=== PATIENT | female | born 1985 | race Caucasian/White ===

== ENCOUNTER 2020-05-29 12:45 | Emergency (ER) | payer BC ==
[2020-05-29 14:10] LABS: BLOOD UREA NITROGEN,BUN 12 mg/dL (7.0-18.0); CARBON DIOXIDE,CO2 25.1 mmol/L (21.0-32.0); CHLORIDE,CL 102 mmol/L (98-107); GLUCOSE RANDOM 111 mg/dL (74-106); POTASSIUM,K 3.6 mmol/L (3.5-5.1); SODIUM,NA 136 mmol/L (136-145)
--- NOTE | 2020-05-29 14:20 | EDM.PDOC ---
ED [facility] GENERAL MEDICAL PROBLEM - General Chief Complaint: Neurological Problem Stated Complaint: RIGHT ARM GOING NUMB Time Seen by Provider: 05/29/20 14:05 - History of Present Illness INITIAL COMMENTS - FREE TEXT/NARRATIVE: HISTORY AND PHYSICAL: History of present illness: This 35-year-old female is 2 para 2 with her initial being twins, this is also a multi parous . The patient reports that she is approximately 16 weeks and has been waking up with bilateral upper extremity mostly on the right paresthesias that go from the shoulder to the hands. Mostly into her index and middle finger. She has no wrist pain. She denies any headache or lower extremity swelling. She has a sensation of fullness in her right upper extremity without evidence of right upper extremity swelling. Review of systems: A 10-point review of systems, other than pertinent positives and negatives as stated per HPI, is otherwise negative. Past medical history: As per history of present illness and as reviewed below otherwise noncontributory. Surgical history: As per history of present illness and as reviewed below otherwise noncontributory. Social history: No reported history of drug or alcohol abuse. Family history: As per history of present illness and as reviewed below otherwise noncontributory. Physical exam: VITAL SIGNS: Reviewed. GENERAL: Anxious about her condition but nontoxic and well-appearing otherwise HEAD: No signs of head trauma. EYES: Pupils are equal. Extraocular motions intact. EARS: Hearing grossly intact. MOUTH: Oropharynx is normal. NECK: No adenopathy, no JVD. CHEST: Chest with clear breath sounds bilaterally. No wheezes, rales, or rhonchi. CARDIAC: Regular rate and rhythm. Normal S1 and S2, without murmurs, gallops, or rubs. VASCULAR: Peripheral pulses normal and equal in all extremities. ABDOMEN: Soft, without detectable tenderness. No sign of distention. No rebound or guarding, and no masses palpated. MUSCULOSKELETAL: Track jones on bilateral antecubital fossa's. Multiple tattoos on the upper extremities. 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 She reports that she has been cocaine injection free and alcohol injection free since 2014. She is still smoking. Distal neurovascular function is intact. No change in light or sharp touch. Equal splitter hand. Slightly hyperreflexic. NEUROLOGIC EXAM: Alert and oriented x 3. No focal sensory or motor deficits. Speech normal. Follows commands. Renal nerves II through XII are intact. Normal gait when ambulating. Slightly hyperreflexic. No clonus PSYCHIATRIC: Mood normal. SKIN: No rash or lesions. Initial Differential Diagnosis & Plan: Carpal tunnel syndrome, brachial plexus injury, preeclampsia Mild hypertension. Mild hyperreflexia. We will check labs to include LFTs, magnesium level, CBC. She also reports a previous history of thalassemia minor. Pelvic ultrasound to check on the status of the babies. There is no vaginal bleeding or discharge. No abdominal cramping. Definitive disposition and diagnosis as appropriate pending reevaluation and review of above. 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: Psychiatric History: Reports: Anxiety, Depression Hematologic History: Reports: Anemia, Other (See Below) Other Hematologic History: Thalacemia Social & Family History - Family History Family Medical History: Noncontributory - Tobacco Use Second Hand Smoke Exposure: No - Recreational Drug Use Recreational Drug Use: No ED ROS GENERAL - Review of Systems Review Of Systems: See Below (noted) ED EXAM, NEURO - Physical Exam Exam: See Below (noted) ED NEURO PROCEDURES - Additional/Other Procedure(s) Other (Free Text) Procedure(s): PROCEDURE NOTE: Limited OB / Pelvic Ultrasound (transabdominal) Indication: Confirm a live IUP All images obtained and evaluated by me. Images archived and saved. Findings: 1. Uterus Identified 2. No significant Free Fluid Noted 3. Intrauterine identified 4. To live fetus is noted with normal appearing heart rate. Interpretation: 1. Live baby #1 2. Live baby #2 3. 2 intrauterine pregnanciestwins Signed by Ovi Sanchez M.D. Course - Vital Signs Last Recorded V/S: Last Vital Signs Temp 97.5 F 05/29/20 12:54 Pulse 107 H 05/29/20 14:54 Resp 18 05/29/20 14:54 BP 154/106 H 05/29/20 14:54 Pulse Ox 98 05/29/20 14:54 - Orders/Labs/Meds Orders: Active Orders 24 hr Category Date Time Status Magnesium Sulfate/Water [Magnesium Sulfate in Water Med 05/29/20 14:57 Once Premix] 2 gm IV ONETIME ONE Medication Orders Magnesium Sulfate (Magnesium Sulfate In Water Premix) 2 gm IV ONETIME ONE Stop: 05/29/20 14:58 Labs: Laboratory Tests 05/29/20 05/29/20 05/29/20 Range/Units 13:40 13:40 13:40 WBC 7.96 (4.0-11.0) K/uL RBC 4.76 (4.30-5.90) M/uL Hgb 10.6 L (12.0-16.0) g/dL Hct 32.6 L (36.0-46.0) % MCV 68.5 L (80.0-98.0) fL MCH 22.3 L (27.0-32.0) pg MCHC 32.5 (31.0-37.0) g/dL RDW Std Deviation 39.1 (28.0-62.0) fl RDW Coeff of Scott 16 H (11.0-15.0) % Plt Count 227 (150-400) K/uL MPV 10.40 (7.40-12.00) fL Neut % (Auto) 71.5 (48.0-80.0) % Lymph % (Auto) 23.1 (16.0-40.0) % Jenkins % (Auto) 4.3 (0.0-15.0) % Eos % (Auto) 1.0 (0.0-7.0) % Baso % (Auto) 0.1 (0.0-1.5) % Neut # (Auto) 5.7 (1.4-5.7) K/uL Lymph # (Auto) 1.8 (0.6-2.4) K/uL Jenkins # (Auto) 0.3 (0.0-0.8) K/uL Eos # (Auto) 0.1 (0.0-0.7) K/uL Baso # (Auto) 0.0 (0.0-0.1) K/uL Nucleated RBC % 0.0 /100WBC Nucleated RBCs # 0 K/uL INR Sodium (136-145) mmol/L Potassium (3.5-5.1) mmol/L Chloride (98-107) mmol/L Carbon Dioxide (21.0-32.0) mmol/L BUN (7.0-18.0) mg/dL Creatinine (0.6-1.0) mg/dL Est Cr Clr Drug Dosing mL/min Estimated GFR (MDRD) ml/min Glucose (74-106) mg/dL Calcium (8.5-10.1) mg/dL Magnesium (1.8-2.4) mg/dL Total Bilirubin (0.2-1.0) mg/dL AST (15-37) IU/L ALT (14-63) IU/L Alkaline Phosphatase (46-116) U/L Total Protein (6.4-8.2) g/dL Albumin (3.4-5.0) g/dL Globulin (2.6-4.0) g/dL Albumin/Globulin Ratio (0.9-1.6) Urine Color YELLOW Urine Appearance CLEAR Urine pH 7.5 (5.0-8.0) Ur Specific [place] 1.020 (1.001-1.035) Urine Protein NEGATIVE (NEGATIVE) mg/dL Urine Glucose (UA) NEGATIVE (NEGATIVE) mg/dL Urine Ketones NEGATIVE (NEGATIVE) mg/dL Urine Occult Blood NEGATIVE (NEGATIVE) Urine Nitrite NEGATIVE (NEGATIVE) Urine Bilirubin NEGATIVE (NEGATIVE) Urine Urobilinogen 0.2 (<2.0) EU/dL Ur Leukocyte Esterase NEGATIVE (NEGATIVE) Urine Opiates Screen NEGATIVE (NEGATIVE) Ur Oxycodone Screen NEGATIVE (NEGATIVE) Urine Methadone Screen NEGATIVE (NEGATIVE) Ur Barbiturates Screen NEGATIVE (NEGATIVE) Ur Phencyclidine Scrn NEGATIVE (NEGATIVE) Ur Amphetamine Screen NEGATIVE (NEGATIVE) U Methamphetamines Scrn NEGATIVE (NEGATIVE) U Benzodiazepines Scrn NEGATIVE (NEGATIVE) U Cocaine Metab Screen NEGATIVE (NEGATIVE) U Marijuana (THC) Screen NEGATIVE (NEGATIVE) 05/29/20 05/29/20 Range/Units 13:40 13:40 WBC (4.0-11.0) K/uL RBC (4.30-5.90) M/uL Hgb (12.0-16.0) g/dL Hct (36.0-46.0) % MCV (80.0-98.0) fL MCH (27.0-32.0) pg MCHC (31.0-37.0) g/dL RDW Std Deviation (28.0-62.0) fl RDW Coeff of Scott (11.0-15.0) % Plt Count (150-400) K/uL MPV (7.40-12.00) fL Neut % (Auto) (48.0-80.0) % Lymph % (Auto) (16.0-40.0) % Jenkins % (Auto) (0.0-15.0) % Eos % (Auto) (0.0-7.0) % Baso % (Auto) (0.0-1.5) % Neut # (Auto) (1.4-5.7) K/uL Lymph # (Auto) (0.6-2.4) K/uL Jenkins # (Auto) (0.0-0.8) K/uL Eos # (Auto) (0.0-0.7) K/uL Baso # (Auto) (0.0-0.1) K/uL Nucleated RBC % /100WBC Nucleated RBCs # K/uL INR 0.91 Sodium 136 (136-145) mmol/L Potassium 3.6 (3.5-5.1) mmol/L Chloride 102 (98-107) mmol/L Carbon Dioxide 25.1 (21.0-32.0) mmol/L BUN 12 (7.0-18.0) mg/dL Creatinine 0.8 (0.6-1.0) mg/dL Est Cr Clr Drug Dosing 76.89 mL/min Estimated GFR (MDRD) > 60.0 ml/min Glucose 111 H (74-106) mg/dL Calcium 9.0 (8.5-10.1) mg/dL Magnesium 1.4 L (1.8-2.4) mg/dL Total Bilirubin 0.2 (0.2-1.0) mg/dL AST 24 (15-37) IU/L ALT 38 (14-63) IU/L Alkaline Phosphatase 77 (46-116) U/L Total Protein 6.7 (6.4-8.2) g/dL Albumin 3.3 L (3.4-5.0) g/dL Globulin 3.4 (2.6-4.0) g/dL Albumin/Globulin Ratio 1.0 (0.9-1.6) Urine Color Urine Appearance Urine pH (5.0-8.0) Ur Specific [place] (1.001-1.035) Urine Protein (NEGATIVE) mg/dL Urine Glucose (UA) (NEGATIVE) mg/dL Urine Ketones (NEGATIVE) mg/dL Urine Occult Blood (NEGATIVE) Urine Nitrite (NEGATIVE) Urine Bilirubin (NEGATIVE) Urine Urobilinogen (<2.0) EU/dL Ur Leukocyte Esterase (NEGATIVE) Urine Opiates Screen (NEGATIVE) Ur Oxycodone Screen (NEGATIVE) Urine Methadone Screen (NEGATIVE) Ur Barbiturates Screen (NEGATIVE) Ur Phencyclidine Scrn (NEGATIVE) Ur Amphetamine Screen (NEGATIVE) U Methamphetamines Scrn (NEGATIVE) U Benzodiazepines Scrn (NEGATIVE) U Cocaine Metab Screen (NEGATIVE) U Marijuana (THC) Screen (NEGATIVE) Meds: Medications Generic Name Dose Route Start Last Admin Trade Name Freq PRN Reason Stop Dose Admin Magnesium Sulfate 2 gm 05/29/20 14:57 Magnesium Sulfate In Water Premix IV 05/29/20 14:58 ONETIME ONE - Re-Assessments/Exams Free Text/Narrative Re-Assessment/Exam: 05/29/20 15:01 Patient is doing well. Symptoms are slightly improved. They improve throughout the day. Her magnesium level was found to be 1.4. This is significantly low. She is still smoking. Her blood pressure is improved. Did not find other laboratory abnormalities other than slight anemia. Given these findings we will replace her magnesium, have her follow-up with OB, and return if she has worsening. No evidence of chest pain which would indicate aortic dissection. No focal neurologic deficits other than her upper extremity radiculopathy. My diagnostic impression: 1. Right upper extremity radiculopathy 2. Hypomagnesemia Suggest outpatient MRI if this continues. 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 Departure - Departure Time of Disposition: 15:05 Disposition: Home, Self-Care 01 Clinical Impression: Right cervical radiculopathy, Hypomagnesemia, , twins - Discharge Information *PRESCRIPTION DRUG MONITORING PROGRAM REVIEWED*: Not Applicable *COPY OF PRESCRIPTION DRUG MONITORING REPORT IN PATIENT [place]: Not Applicable Instructions: Cervical Radiculopathy, [id number] Referrals: PCP,Not In Area [Primary Care Provider] - Forms: ED Department Discharge Additional Instructions: The following information is given to patients seen in the emergency department who are being discharged to home. This information is to outline your options for follow-up care. We provide all patients seen in our emergency department with a follow-up referral. The need for follow-up, as well as the timing and circumstances, are variable depending upon the specifics of your emergency department visit. If you don't have a primary care physician on staff, we will provide you with a referral. We always advise you to contact your personal physician following an emergency department visit to inform them of the circumstance of the visit and for follow-up with them and/or the need for any referrals to a consulting specialist. The emergency department will also refer you to a specialist when appropriate. This referral assures that you have the opportunity for follow-up care with a specialist. All of these measure are taken in an effort to provide you with optimal care, which includes your follow-up. Thank you for coming to the [facility] urgency department for your care today. It was Dr. Sanchez's pleasure to take care of you. Your magnesium level is low which can give you nerve symptoms. Foods high in magnesium include almonds, spinach, cashews, pumpkin seeds, peanuts, dark chocolate, soy milk, oatmeal, kidney beans, bananas, and raisins. Please try and fortify your diet with some of these foods to help replace your magnesium levels. Low magnesium levels can cause neurologic symptoms. Please also take your vitamins. [facility] [address] [place] [id number] [facility] [address] [place] [id number] Please follow-up with your ELECT[employer]IC METER INSTALLER HELPER professional/ because you could need additional testing including an MRI of your brain and neck if this continues. Return for fevers, worsening, or any other concerns. We are always happy to see you. Under all circumstances we always encourage you to contact your private physician who remains a resource for coordinating your care. When calling for follow-up care, please make the office aware that this follow-up is from your recent emergency room visit. If for any reason you are refused follow-up, please contact the [facility] Emergency Department at and asked to speak to the emergency department charge nurse. Sepsis Event Note (ED) - Evaluation Sepsis Screening Result: No Definite Risk - Focused Exam Vital Signs: Vital Signs Temp Pulse Resp BP Pulse Ox 05/29/20 14:54 107 H 18 154/106 H 98 05/29/20 12:54 97.5 F 109 H 20 135/66 99 - My Orders Last 24 Hours: My Active Orders 05/29/20 14:57 Magnesium Sulfate/Water [Magnesium Sulfate in Water Premix] 2 gm IV ONETIME ONE - Assessment/Plan Last 24 Hours: My Active Orders 05/29/20 14:57 Magnesium Sulfate/Water [Magnesium Sulfate in Water Premix] 2 gm IV ONETIME ONE
[2020-05-29] MEDS ORDERED: Magnesium Sulfate/Water 2 GM/50 ML Premix Bag IV ONE (14:57)
== END 2020-05-29 16:09 | disposition home or self-care (01) ==
LOC: MW.ED 12:45
DX: O99.891 Other specified diseases and conditions complicating pregnancy (principal); M54.12 Radiculopathy, cervical region; O99.282 Endocrine, nutritional and metabolic diseases complicating pregnancy, second trimester; E83.42 Hypomagnesemia; O09.522 Supervision of elderly multigravida, second trimester; O30.002 Twin pregnancy, unspecified number of placenta and unspecified number of amniotic sacs, second trimester; O99.512 Diseases of the respiratory system complicating pregnancy, second trimester; J45.909 Unspecified asthma, uncomplicated; O99.342 Other mental disorders complicating pregnancy, second trimester; F41.9 Anxiety disorder, unspecified; F32.9 Major depressive disorder, single episode, unspecified; Z88.1 Allergy status to other antibiotic agents; Z88.0 Allergy status to penicillin; Z79.899 Other long term (current) drug therapy; Z3A.16 16 weeks gestation of pregnancy
CPT/HCPCS: 36415; 80053; 80305; 81003; 83735; 85025; 85610; 96365; 99284; J3475